=== PATIENT | male | born 1995 | race African-American/Black ===

== ENCOUNTER 2018-06-28 10:35 | Emergency (ER) | payer BC ==
[2018-06-28 10:47] VITALS: BP 139/91; PULSE 88; TEMP 98.2; BMI 21.9
--- NOTE | 2018-06-28 10:53 | PDOC ---
History of Present Illness - General Chief Complaint: Pain Stated Complaint: ABD. PAIN Time Seen by Provider: 06/28/18 10:50 History Source: Patient Exam Limitations: No Limitations Past History - Travel Traveled outside of the country in the last 30 days: No Close contact w/someone who was outside of country & ill: No - Past Medical History Allergies/Adverse Reactions: Allergies Allergy/AdvReac Type Severity Reaction Status Date / Time No Known Allergies Allergy Verified 06/28/18 10:44 Home Medications: Ambulatory Orders Ibuprofen 600 mg PO Q6H #30 tablet 06/28/18 Ibuprofen 600 mg PO Q6H #30 tablet 06/28/18 Tamsulosin HCl [Flomax -] 0.4 mg PO DAILY #7 capsule 06/28/18 Tamsulosin HCl [Flomax -] 0.4 mg PO DAILY #7 capsule 06/28/18 COPD: No - Immunization History Immunization Up to Date: Yes - Suicide/Smoking/Psychosocial Hx Smoking History: Never smoked Information on smoking cessation initiated: No Hx Alcohol Use: No Drug/Substance Use Hx: No Review of Systems - Review of Systems Able to Perform ROS?: Yes Comments:: 06/28/18 10:53 CONSTITUTIONAL: Absent: fever, chills, diaphoresis, generalized weakness, malaise, loss of appetite HEENT: Absent: rhinorrhea, nasal congestion, throat pain, throat swelling, difficulty swallowing, mouth swelling, ear pain, eye pain, visual Changes CARDIOVASCULAR: Absent: chest pain, loss of consciousness, palpitations, irregular heart rate, peripheral edema RESPIRATORY: Absent: cough, shortness of breath, dyspnea with exertion, orthopnea, wheezing, stridor, hemoptysis GASTROINTESTINAL: Present: L sided abdominal pain, diarrhea Absent: abdominal distension, nausea, vomiting, constipation, melena, hematochezia GENITOURINARY: Absent: dysuria, frequency, urgency, hesitancy, hematuria, flank pain, genital pain MUSCULOSKELETAL: Absent: myalgia, arthralgia, joint swelling SKIN: Absent: rash, itching, pallor HEMATOLOGIC/IMMUNOLOGIC: Absent: easy bleeding, easy bruising, lymphadenopathy, frequent infections ENDOCRINE: Absent: unexplained weight gain, unexplained weight loss, heat intolerance, cold intolerance NEUROLOGIC: Absent: headache, focal weakness or paresthesias, dizziness, unsteady gait, seizure, mental status changes, bladder or bowel incontinence PSYCHIATRIC: Absent: anxiety, depression, suicidal or homicidal ideation, hallucinations. Is the patient limited Montenegrin proficient: No *Physical Exam - Vital Signs Last Vital Signs Temp Pulse Resp BP Pulse Ox 98.2 F 88 16 139/91 100 06/28/18 10:45 06/28/18 10:45 06/28/18 10:45 06/28/18 10:45 06/28/18 10:45 - Physical Exam Comments: 06/28/18 10:53 GENERAL: Well developed, well nourished. Awake and alert. No acute distress. NECK: Supple. Full ROM. No JVD. Carotid pulses 2+ and symmetric, without bruits. No thyromegaly. No lymphadenopathy. CARDIOVASCULAR: Regular rate and rhythm. No murmurs, rubs, or gallops. Distal pulses are 2+ and symmetric. PULMONARY: No evidence of respiratory distress. Lungs clear to auscultation bilaterally. No wheezing, rales or rhonchi. ABDOMINAL: TTP of the LLQ. Soft. Non-distended. No rebound or guarding. No organomegaly. Normoactive bowel sounds. MUSCULOSKELETAL Normal range of motion at all joints. No bony deformities or tenderness. (+) L CVA tenderness. EXTREMITIES: No cyanosis. No clubbing. No edema. No calf tenderness. SKIN: Warm and dry. Normal capillary refill. No rashes. No jaundice. NEUROLOGICAL: Alert, awake, appropriate. Cranial nerves 2-12 intact. No deficits to light touch and temperature in face, upper extremities and lower extremities. No motor deficits in the in face, upper extremities and lower extremities. Normoreflexic in the upper and lower extremities. Normal speech. Toes are down- going bilaterally. Gait is normal without ataxia. PSYCHIATRIC: Cooperative. Good eye contact. Appropriate mood and affect. ED Treatment Course - LABORATORY CBC & Chemistry Diagram: 06/28/18 11:36 06/28/18 11:36 Medical Decision Making - Medical Decision Making 06/28/18 11:31 The patient is a 23 y/o M with no PMH who presents to the ED with LLQ pain since this morning. He states that the pain came out of nowhere and it feels sharp and stabbing in nature. Admits to one episode of diarrhea as well. He has not taken any medication for the pain. Denies fevers, chills, shortness of breath, chest pain, nausea, vomiting, constipation, frequency, hematuria, dysuria,. A/P: LLQ pain DDX includes but is not limited to L renal stone, diverticulitis, colitis, viral illness, less likely appendicitis. Pt with L flank pain, LLQ pain and L CVA tenderness on exam Labs, urine, IVF, ofirmev ordered CTAP to r/o stone Re-evaluate 06/28/18 16:48 CTAP shows a 2mm obstructing L UPJ stone with mild hydronephrosis Pt reports relief of symptoms at this time after ofirmev UA is negative at this time DC home with urology follow up and symptomatic relief Strict return precautions given I discussed the physical exam findings, ancillary test results and final diagnoses with the patient. I answered all of the patient's questions. The patient was satisfied with the care received and felt comfortable with the discharge plan and treatment plan. The Patient agrees to follow up with the primary care physician/specialist within 24-72 hours. Return precautions were given. *DC/Admit/Observation/Transfer Diagnosis at time of Disposition: Kidney stones - Discharge Dispostion Disposition: HOME Condition at time of disposition: Stable Decision to Admit order: No - Prescriptions Prescriptions: Ibuprofen 600 mg PO Q6H #30 tablet Ibuprofen 600 mg PO Q6H #30 tablet Tamsulosin HCl [Flomax -] 0.4 mg PO DAILY #7 capsule Tamsulosin HCl [Flomax -] 0.4 mg PO DAILY #7 capsule - Referrals Referrals: Orestes Pearce MD [Staff Physician] - - Patient Instructions Printed Discharge Instructions: DI for Kidney Stones Additional Instructions: You have a kidney stone on the L side that is moving out towards the bladder. Please take the flomax (tamsulosin) as directed to help the stone go to the bladder You may take ibuprofen every 6 hours as needed for pain Follow up with Dr. Lee within 48-72 hours. Return to the ED for worsening pain fever, if you are unable to make urine, vomiting, or if you have any changes in your symptoms - Post Discharge Activity Forms/Work/School Notes: Back to Work
[2018-06-28] MEDS ORDERED: ACETAMINOPHEN 1000 MG/100 ML VIAL (NON FORMULARY) IVPB ONE (11:05)
[2018-06-28] MEDS ORDERED: SODIUM CHLORIDE 1,000 ML IV STA (11:05)
[2018-06-28] MEDS ORDERED: ONDANSETRON 4 MG/2 ML VIAL IVPUSH ONE (11:05)
[2018-06-28] MEDS ORDERED: ACETAMINOPHEN INJECTION 100 ML IVPB ONE (11:28)
[2018-06-28] MEDS ORDERED: ONDANSETRON 4 MG/2 ML VIAL ONE (11:28)
[2018-06-28 11:47] LABS: BASO % 0.7 % (0-2.0); EOS % 1.4 % (0-4.5); HEMATOCRIT 41.1 % (35.4-49); HEMOGLOBIN 12.9 GM/dL (11.7-16.9); LYMPH % 13.9 % (8-40); MCH 21.8 pg (25.7-33.7); MCHC 31.3 g/dl (32.0-35.9); MEAN CELL VOLUME 69.6 fl (80-96); MONO % 5.7 % (3.8-10.2); NEUT % 78.3 % (42.8-82.8); PLATELET COUNT 138 K/MM3 (134-434); RDW 16.2 % (11.9-15.9)
[2018-06-28 12:03] LABS: INR 1.04 (0.83-1.09); PROTHROMBIN TIME (PATIENT) 12.3 SEC (9.7-13.0)
[2018-06-28 12:33] LABS: ALK PHOS 53 U/L (45-117); ANION GAP 6 MMOL/L (8-16); BILIRUBIN,TOTAL 0.3 mg/dL (0.2-1); BLOOD UREA NITROGEN 14 mg/dL (7-18); CALCIUM 8.9 mg/dL (8.5-10.1); CHLORIDE 105 mmol/L (98-107); CO2 29 mmol/L (21-32); GLUCOSE,RANDOM 99 mg/dL (74-106); POTASSIUM 4.3 mmol/L (3.5-5.1); SGOT/AST 27 U/L (15-37); SGPT/ALT 26 U/L (13-61); SODIUM 139 mmol/L (136-145); TOT PROT 7.4 g/dl (6.4-8.2)
[2018-06-28 13:10] LABS: ANISOCYTOSIS 2+; OVALOCYTE 1+; PLATELET ESTIMATE DECREASED; ROULEAU 1+
[2018-06-28 15:37] LABS: EPI CELLS 1.8 /HPF (0-5/HPF); PH,URINE 7.5 (5.0-8.0); URINE APPEARANCE CLEAR; URINE BACTERIA 13.4 /hpf (NEGATIVE); URINE BILIRUBIN NEGATIVE (NEGATIVE); URINE CASTS 3 /lpf (0-8); URINE COLOR YELLOW; URINE GLUCOSE (UA) NEGATIVE (NEGATIVE); URINE KETONE NEGATIVE (NEGATIVE); URINE LEUK ESTERASE NEGATIVE (NEGATIVE); URINE NITRITE NEGATIVE (NEGATIVE); URINE PROTEIN NEGATIVE (NEGATIVE); URINE RBC 60 /hpf (0-4); URINE UROBILINOGEN 0.2 mg/dL (0.2-1.0); URINE WBC 1 /hpf (0-5)
== END 2018-06-28 17:19 | disposition home or self-care (01) ==
LOC: JER 10:35
PROC: 3E033GC Introduction of Other Therapeutic Substance into Peripheral Vein, Percutaneous Approach (ICD-10-PCS; principal; 2018-06-28)
PROC: 3E033NZ Introduction of Analgesics, Hypnotics, Sedatives into Peripheral Vein, Percutaneous Approach (ICD-10-PCS; 2018-06-28)
DX: N20.0 Calculus of kidney (principal)
CPT/HCPCS: 36415; 74176-TC; 80053; 81003; 85025; 85610; 87086; 99283-25; J0131; J7030

== ENCOUNTER 2019-09-07 07:53 | Emergency (ER) | payer BC ==
[2019-09-07] MEDS ORDERED: SODIUM CHLORIDE 1,000 ML IV STA (07:59)
--- NOTE | 2019-09-07 08:00 | PDOC ---
Rapid Medical Evaluation Time Seen by Provider: 09/07/19 07:57 Medical Evaluation: Allergies Allergy/AdvReac Type Severity Reaction Status Date / Time No Known Allergies Allergy Verified 06/28/18 10:44 09/07/19 07:57 Pt presents with R sided flank pain since 6:30 this morning. Hx of kidney stones, took ibuprofen this morning. Denies COVID exposure. Exam: R sided CVA tenderness, NAD Orders: Labs, IV Pt to proceed to the ER for further evaluation Discharge Disposition - Diagnosis Right flank pain - Referrals - Patient Instructions - Post Discharge Activity
[2019-09-07 08:01] VITALS: BMI 21.2
[2019-09-07] MEDS ORDERED: KETOROLAC TROMETHAMINE 30 MG/1 ML VIAL IVPUSH ONE (08:24)
[2019-09-07] MEDS ORDERED: KETOROLAC TROMETHAMINE 30 MG/1 ML VIAL ONE (08:35)
[2019-09-07 09:06] LABS: BASO % 0.5 % (0-2.0); EOS % 4.4 % (0-4.5); HEMATOCRIT 41.1 % (35.4-49); HEMOGLOBIN 12.7 GM/dL (11.7-16.9); LYMPH % 35.9 % (8-40); MCH 21.4 pg (25.7-33.7); MEAN CELL VOLUME 69.1 fl (80-96); NEUT % 51.2 % (42.8-82.8); PLATELET COUNT 186 K/MM3 (134-434); RBC 5.94 M/mm3 (4.00-5.60); RDW 16.6 % (11.9-15.9); WHITE BLOOD COUNT 6.6 K/mm3 (4.0-10.0)
--- NOTE | 2019-09-07 09:31 | PDOC ---
Documentation entered by Sherrie Carroll SCRIBE, acting as scribe for Db Aponte MD. Db Aponte MD: This documentation has been prepared by the mandeepeGlen Sydney, SCRIBE, under my direction and personally reviewed by me in its entirety. I confirm that the documentation accurately reflects all work, treatment, procedures, and medical decision making performed by me. History of Present Illness - General Chief Complaint: Pain, Acute Stated Complaint: R/O KIDENT STONES Time Seen by Provider: 09/07/19 07:57 History Source: Patient Exam Limitations: No Limitations - History of Present Illness Initial Comments: 09/07/19 08:29 Patient is a 24 year old male with a significant past medical history of kidney stones who presents to the ED with right-sided flank pain since 7:30 this morning. As per patient, his pain is sharp and non-radiating anywhere else. The patient also endorses five episodes of diarrhea yesterday, but notes frequent episodes of diarrhea. He also notes some nausea. The patient denies chest pain, shortness of breath, headache, fever, chills, vomiting, and constipation. Denies dysuria, frequency, urgency and hematuria. Allergies: Fish Past History - Medical History Allergies/Adverse Reactions: Allergies Allergy/AdvReac Type Severity Reaction Status Date / Time No Known Allergies Allergy Verified 09/07/19 07:57 Home Medications: Ambulatory Orders Ondansetron [Zofran -] 4 mg PO BID #14 tablet 09/07/19 Oxycodone HCl/Acetaminophen [Percocet 5-325 mg Tablet] 1 tab PO Q6H #10 tablet MDD 3 09/07/19 Sulfamethoxazole/Trimethoprim [Bactrim Ds -] 1 tab PO BID #14 tablet 09/07/19 COPD: No Kidney Stones: Yes - Immunization History Immunization Up to Date: No - Psycho-Social/Smoking History Smoking History: Never smoked - Substance Abuse Hx (Audit-C & DAST Scrn) How often the patient has a drink containing alcohol: Never Score: In Men: 4 or > Positive; In Women: 3 or > Positive: 0 Screen Result (Pos requires Nsg. Audit-10AR): Negative In the last yr the pt used illegal drug/Rx for NonMed reason: No Score: Yes response is considered Positive: 0 Screen Result (Positive result requires Nsg. DAST-10): Negative Review of Systems - Review of Systems Able to Perform ROS?: Yes Comments:: 09/07/19 08:28 CONSTITUTIONAL: No fever, no chills, no fatigue EYES: No visual changes ENT: No ear pain, no sore throat CARDIOVASCULAR: No chest pain, no palpitations RESPIRATORY: No cough, no SOB GI: + R-sided flank pain, nausea,diarrhea. No vomiting, no constipation GENITOURINARY: No dysuria, no frequency, no hematuria MUSKULOSKELETAL: No back pain, no joint pain, no myalgias SKIN: No rash NEURO: No headache *Physical Exam - Vital Signs Last Vital Signs Temp Pulse Resp BP Pulse Ox 97.9 F 91 H 20 156/85 98 09/07/19 07:58 09/07/19 07:58 09/07/19 07:58 09/07/19 07:58 09/07/19 07:58 - Physical Exam 09/07/19 08:28 CONSTITUTIONAL: Well-appearing; well-nourished; in no apparent distress HEAD: Normocephalic; atraumatic EYES: PERRL; EOM intact ENMT: External appears normal; normal oropharynx NECK: Supple; non-tender; no cervical lymphadenopathy CARD: Normal S1, S2; no murmurs, rubs, or gallops RESP: Normal chest excursion with respiration; breath sounds clear and equal bilaterally; no wheezes, rhonchi, or rales ABD: + R CVA tenderness. Soft, non-distended; no palpable organomegaly, no palpable hernias EXT: Normal ROM in all four extremities; non-tender to palpation; distal pulses intact SKIN: Warm, dry, no rash NEURO: No focal neurological deficiencies. ED Treatment Course - LABORATORY CBC & Chemistry Diagram: 09/07/19 08:55 09/07/19 08:55 Medical Decision Making - Medical Decision Making 09/07/19 09:30 Patient is a 24-year-old male with history of nephrolithiasis who presents with 1 hour of sharp nonradiating right flank pain similar to his previous episodes of nephrolithiasis, also associated with numerous episodes of loose watery stools. Patient complains of nausea that has now resolved. Patient denies fever/chills/hematuria/dysuria. I suspect nephrolithiasis differential diagnosis also includes colitis versus gastroenteritis versus musculoskeletal strain. Will administer IV fluids and Toradol. Will obtain CBC/UA and spiral CT of abdomen/ pelvis. Will reassess. 09/07/19 11:03 Patient vomited. Will administer Zofran, will continue with IV fluids. Will administer additional pain meds. CT shows mild hydronephrosis with a 2 mm UVJ stone. 09/07/19 12:23 patient reassessed. Patient resting comfortably, tolerates p.o. Nontoxic-appearing. Will discharge. Discharge - Discharge Information Problems reviewed: Yes Clinical Impression/Diagnosis: Right flank pain, Kidney stones Condition: Stable Disposition: HOME - Admission No - Additional Discharge Information Prescriptions: Sulfamethoxazole/Trimethoprim [Bactrim Ds -] 1 tab PO BID #14 tablet Oxycodone HCl/Acetaminophen [Percocet 5-325 mg Tablet] 1 tab PO Q6H #10 tablet MDD 3 Ondansetron [Zofran -] 4 mg PO BID #14 tablet - Follow up/Referral Referrals: Raquel Fernando [Primary Care Provider] - - Patient Discharge Instructions Patient Printed Discharge Instructions: DI for Kidney Stones - Post Discharge Activity Work/Back to School Note: Back to Work
[2019-09-07 09:38] LABS: ALBUMIN 4.4 g/dl (3.4-5.0); BILIRUBIN,TOTAL 0.5 mg/dL (0.2-1); BLOOD UREA NITROGEN 12.8 mg/dL (7-18); CALCIUM 9.1 mg/dL (8.5-10.1); CREATININE 1.1 mg/dL (0.55-1.3); POTASSIUM 3.4 mmol/L (3.5-5.1); TOT PROT 7.6 g/dl (6.4-8.2)
[2019-09-07 09:51] LABS: EPI CELLS 13 /uL (0-25.1); HYALINE CASTS 3 /uL (0-3.1); URINE APPEARANCE Cloudy; URINE BACTERIA 100 /uL (0-1359); URINE BILIRUBIN Negative (NEGATIVE); URINE COLOR Yellow; URINE GLUCOSE (UA) Negative (NEGATIVE); URINE KETONE Trace (NEGATIVE); URINE LEUK ESTERASE Negative (NEGATIVE); URINE NITRITE Negative (NEGATIVE); URINE PROTEIN Trace (NEGATIVE); URINE RBC 291 /uL (0-23.9); URINE WBC 20 /uL (0-25.8)
[2019-09-07] MEDS ORDERED: CEFTRIAXONE 1,000 MG in DEXTROSE 5%-WATER - 50 ML IVPB ONE (10:04)
[2019-09-07] MEDS ORDERED: CEFTRIAXONE 1 GM/50 ML BAG ONE (10:08)
[2019-09-07] MEDS ORDERED: ONDANSETRON 4 MG/2 ML VIAL IVPUSH ONE (11:00)
[2019-09-07 11:02] LABS: MACROCYTOSIS 0; PLATELET ESTIMATE NORMAL
[2019-09-07 12:06] LABS: URINE CRYSTALS NON SEEN /hpf
[2019-09-07 12:36] VITALS: BP 128/80; PULSE 68; TEMP 98.3
== END 2019-09-07 12:43 | disposition home or self-care (01) ==
LOC: JER 07:53
PROC: 3E0337Z Introduction of Electrolytic and Water Balance Substance into Peripheral Vein, Percutaneous Approach (ICD-10-PCS; principal; 2019-09-07)
PROC: 3E033GC Introduction of Other Therapeutic Substance into Peripheral Vein, Percutaneous Approach (ICD-10-PCS; principal; 2019-09-07)
DX: N20.0 Calculus of kidney (principal)
CPT/HCPCS: 36415; 74176-TC; 80053; 81003; 85025; 99285-25